=== PATIENT | female | born 1995 | race Two or more races ===

== ENCOUNTER 2017-07-12 23:21 | Emergency (ER) | payer BC, MEDICAID, OTHER ==
[~2017-07-12] VITALS: Ht 147.3 cm; Wt 54.4 kg
--- NOTE | 2017-07-12 23:55 | NUR ---
PT AMBULATORY TO ER BED 6, C/O MID EPIGASTRIC PAIN. - N/V AT THIS TIME. PT AOX3 RR EVEN AND UNLABORED. NO SOB NOTED. NAD NOTED. PT NOT DIAPHORETIC. PT GOWNED. WAITING FOR MD GENAO. URINE COLLECTED.
[2017-07-12 23:59] VITALS: BP 102/52
[2017-07-13] MEDS ORDERED: MAG HYDROX/AL HYDROX/SIMETH 30 ML UDC ONE (00:12)
[2017-07-13] MEDS ORDERED: LIDOCAINE VISCOUS 2% UD 15 ML UDC ONE (00:12)
[2017-07-13] MEDS ORDERED: LIDOCAINE VISCOUS 2% UD 15 ML UDC MM ONE (00:30)
[2017-07-13] MEDS ORDERED: MAG HYDROX/AL HYDROX/SIMETH 30 ML UDC PO ONE (00:30)
== END 2017-07-13 00:30 | disposition home or self-care (01) ==
LOC: ER 23:22
DX: K21.9 Gastro-esophageal reflux disease without esophagitis (principal)
CPT/HCPCS: 99283; A4606; Z7610

== ENCOUNTER 2019-03-29 21:31 | Emergency (ER) | payer BC, OTHER ==
[~2019-03-29] VITALS: Ht 147.3 cm; Wt 56.7 kg
--- NOTE | 2019-03-29 23:28 | NUR ---
BIB SELF FROM HOME WITH SIGNIFICANT OTHER. AAOX4. NAD, BREATHING EVEN ASN UNLABORED. AMBULATORY. C/O ABDOMINAL PAIN SINCE 3PM. PAIN PRESENT AT THE EPIGASTRIC AREA RADIATING TO BACK. [place] 05/04. -N/V-D. PT TO ER BED 6. AWAITING MD GENAO AND ORDERS.
--- NOTE | 2019-03-29 23:32 | NUR ---
URINE COLLECTED AND SENT TO LAB
[2019-03-29] MEDS ORDERED: MAG HYDROX/AL HYDROX/SIMETH 30 ML UDC ONE (23:48)
[2019-03-29] MEDS ORDERED: DICYCLOMINE HCL 10 MG CAPSULE PO ONE (23:48)
[2019-03-29] MEDS ORDERED: LIDOCAINE VISCOUS 2% UD 15 ML UDC ONE (23:48)
[2019-03-30] MEDS ORDERED: LIDOCAINE VISCOUS 2% UD 15 ML UDC MM ONE
[2019-03-30] MEDS ORDERED: DICYCLOMINE HCL 10 MG CAPSULE PO ONE
[2019-03-30] MEDS ORDERED: MAG HYDROX/AL HYDROX/SIMETH 30 ML UDC PO ONE
[2019-03-30 00:04] LABS: BASOPHILS # (AUTO) 0.1 /CMM (0.0-0.2); BASOPHILS % (AUTO) 0.5 % (0.0-2.0); EOSINOPHILS % (AUTO) 0.4 % (0.0-6.0); HEMATOCRIT 40 % (33-45); HEMOGLOBIN 13.8 g/dL (11.5-14.8); LYMPHOCYTES # (AUTO) 1.2 /CMM (0.8-4.8); LYMPHOCYTES % (AUTO) 8.3 % (20.0-44.0); MEAN CORPUSCULAR HGB CONC 35 g/dl (31.0-36.0); MEAN CORPUSCULAR VOLUME 95 fL (82-100); MONOCYTES # (AUTO) 0.7 /CMM (0.1-1.30); MONOCYTES % (AUTO) 5.2 % (2.0-12.0); NEUTROPHILS % (AUTO) 85.6 % (43.0-81.0); PLATELET COUNT (AUTO) 282 /CMM (150-450); RED BLOOD CELL COUNT(AUTO) 4.19 MIL/uL (4.0-5.2)
[2019-03-30 00:15] LABS: CALCIUM, SERUM 8.9 mg/dL (8.5-10.1); CREATININE 0.6 mg/dL (0.6-1.3); POTASSIUM 4.4 mmol/L (3.5-5.1)
[2019-03-30 00:21] LABS: ALBUMIN 3.4 g/dL (3.4-5.0); BILIRUBIN,TOTAL 1.5 mg/dL (0.2-1.0); TOTAL PROTEIN, SERUM 8.6 g/dL (6.4-8.2)
--- NOTE | 2019-03-30 02:34 | NUR ---
CALLED [facility] , [employer]LE [employer] WAS PAGED.
--- NOTE | 2019-03-30 02:50 | NUR ---
US AT BEDSIDE
--- NOTE | 2019-03-30 03:43 | NUR ---
PT WILL BE TRANFERRED TO [facility]. ADMITTING PHYSICIAN: DR. AMBROSE
--- NOTE | 2019-03-30 04:59 | NUR ---
[facility] ROOM NUMBER: [id number] NURSE: SAAD NUMBER FOR REPORT: [phone]
--- NOTE | 2019-03-30 05:15 | NUR ---
REPORT GIVEN TO NICOLLE NASH OF [facility] PT GOING TO [id number].
--- NOTE | 2019-03-30 05:19 | NUR ---
PT IN BED SLEEPING. NAD NOTED.
--- NOTE | 2019-03-30 05:57 | NUR ---
[facility] [id number] [facility] TRIP NUMBER# [id number]
--- NOTE | 2019-03-30 06:37 | NUR ---
[facility] AT BEDSIDE FOR OFFICE HELPER. PT IS STABLE FOR TRANSPORT. AAOX4. NAD, BREATHING EVEN AND UNLABORED
[2019-03-30 06:39] VITALS: BP 114/70
== END 2019-03-30 06:45 | disposition short-term general hospital (02) ==
LOC: ER 21:32
DX: K85.10 Biliary acute pancreatitis without necrosis or infection (principal)
CPT/HCPCS: 36415; 71045-TC; 76705-TC; 80053-TC; 83690-TC; 85025-TC